=== PATIENT | male | born 1940 | race African-American/Black ===

== ENCOUNTER 2017-03-08 17:31 | Outpatient (CLI) | payer MEDICARE, OTHER ==
--- NOTE | 2017-03-09 14:09 | Diagnostic Imaging Report ---
Indication: Cough Comparison: None 2 views of the chest obtained. No infiltrate identified. Heart size is normal. Calcifications are noted in the right hilum and mediastinum. Bones are osteopenic. Impression: No acute disease. Old granulomatous disease
== END 2017-03-08 19:31 | disposition home or self-care (01) ==
LOC: RAD 17:31
DX: R05 Cough (principal)
CPT/HCPCS: 71020